=== PATIENT | female | born 1995 | race Native Hawaiian/Other Pacific Islander ===

== ENCOUNTER 2018-03-13 20:01 | Emergency (ER) | payer OTHER ==
[2018-03-13 21:52] LABS: HCG Qualitative,Urine Negative (Negative)
[2018-03-13] MEDS ORDERED: NORCO 7.5/325 PO ONE (23:16)
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
[2018-03-14 02:41] VITALS: BP 110/70
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
== END 2018-03-13 23:48 | disposition home or self-care (01) ==
LOC: ED 20:01
DX: S40.021A Contusion of right upper arm, initial encounter (principal); S13.4XXA Sprain of ligaments of cervical spine, initial encounter; F17.200 Nicotine dependence, unspecified, uncomplicated; V89.2XXA Person injured in unspecified motor-vehicle accident, traffic, initial encounter; Y93.89 Activity, other specified; Y92.89 Other specified places as the place of occurrence of the external cause; Y99.8 Other external cause status
CPT/HCPCS: 72040; 81025